=== PATIENT | female | born 1990 ===

== ENCOUNTER 2021-03-22 13:00 | Outpatient (CLI) | payer SELFPAY ==
[2021-03-22 13:18] VITALS: BP 127/84
== END 2021-03-22 13:49 | disposition home or self-care (01) ==
LOC: TRG 13:00 → APU 13:01 → TRG 13:49
PROVIDERS: ATTEND Obstetrics & Gynecology
DX: Z34.93 Encounter for supervision of normal pregnancy, unspecified, third trimester (principal); Z3A.38 38 weeks gestation of pregnancy
CPT/HCPCS: 59025

== ENCOUNTER 2021-03-29 01:48 | Inpatient (IN) | payer OTHER ==
[2021-03-29 03:38] LABS: Basophils # (Auto) 0.1 K/mm3 (0.0-0.1); Basophils % (Auto) 0.5 % (0.0-1.8); Eosinophils % (Auto) 0.2 % (0.0-4.3); Hematocrit 21.7 % (30.3-42.9); Hemoglobin 7.2 gm/dl (10.1-14.3); Lymphocytes # (Auto) 3.4 K/mm3 (1.2-5.4); Lymphocytes % (Auto) 26.4 % (13.4-35.0); Mean Corpuscular HGB Conc 33 % (30-34); Mean Corpuscular Volume 84 fl (79-97); Monocytes % (Auto) 7.6 % (0.0-7.3); Platelet Count 318 K/mm3 (140-440); Red Blood Count 2.58 M/mm3 (3.65-5.03); Red Cell Distribution Width 14.4 % (13.2-15.2)
[2021-03-29] MEDS ORDERED: NalbUPHINE 10 MG/1 ML INJ IV PRN (04:44)
[2021-03-29] MEDS ORDERED: LIDOCAINE (2%) 20 MG/1 ML VIAL 20 ML MDV INFILTRATI ONE (04:44)
[2021-03-29] MEDS ORDERED: METHYLERGONOVINE MALEATE 0.2 MG/ML VIAL IM PRN (04:44)
[2021-03-29] MEDS ORDERED: OXYTOCIN 10 UNIT/1 ML INJ IM PRN (04:44)
[2021-03-29] MEDS ORDERED: MINERAL OIL 30 ML ORAL LIQD PO PRN (04:44)
[2021-03-29] MEDS ORDERED: AMPICILLIN/NS 2 GM/100 ML 2 GM/100 ML BAG IV ONE (04:44)
[2021-03-29] MEDS ORDERED: CARBOPROST TROMETHAMINE 250 MCG/1 ML INJ IM PRN (04:44)
[2021-03-29] MEDS ORDERED: ePHEDrine SULFATE 50 MG/1 ML INJ IV PRN (04:44)
[2021-03-29] MEDS ORDERED: LOPERAMIDE 2 MG CAP PO PRN (04:44)
[2021-03-29] MEDS ORDERED: BUTORPHANOL 2 MG/1 ML INJ IV PRN (04:44)
[2021-03-29] MEDS ORDERED: miSOPROStol 200 MCG TAB PR PRN (04:44)
[2021-03-29] MEDS ORDERED: TERBUTALINE 1 MG/1 ML INJ SUB-Q PRN (04:44)
[2021-03-29] MEDS ORDERED: ACETAMINOPHEN 325 MG TAB PO PRN ×2 (04:44→07:07)
[2021-03-29] MEDS ORDERED: LACTATED RINGERS 1,000 ML IV SCH (04:45)
[2021-03-29] MEDS ORDERED: OXYTOCIN DRIP 30 UNITS/500 ML BAG IV SCH ×2 (05:00)
--- NOTE | 2021-03-29 05:14 | Ultrasound Report ---
ULTRASOUND OBSTETRIC Indication: well-being. Low NIALL. Findings: There is a single intrauterine . BPD = 8.5 cm = 34 weeks, 1 day(s). Head circumference = 33.3 cm = 38 weeks, 0 day(s). Abdominal circumference = 30.1 cm = 34 weeks, 1 day(s). Femur length = 7.22 cm = 36 weeks, 0 day(s). Overall estimated sonographic age = 35 weeks, 4 day(s). heart rate is 156 beats per minute. Estimated weight is 2577 grams position is cephalic. Amniotic fluid volume appears abnormally low. Impression: 1. Single living intrauterine with estimated sonographic age of 35 weeks, 4 day(s). 2. Oligohydramnios with NIALL of 1.4 cm Signer Name: Elvin Alba MD Signed: 03/29/2021 5:10 AM Workstation Name: [id number]
[2021-03-29 05:30] LABS: Alanine Aminotransferase 12 units/L (7-56); Uric Acid 4.2 mg/dL (3.5-7.6)
[2021-03-29] MEDS: BUTORPHANOL 2 MG/1 ML INJ IV PRN ×2 (05:45→07:22)
--- NOTE | 2021-03-29 07:04 | History and Physical Report ---
History of Present Illness Date of examination: 03/29/21 Chief complaint: leakage of fluid History of present illness: 30-year-old G4, P3 at 39 weeks 3 days by stated JAYSON (04/02/2021) with essentially no care presenting with leakage of fluid and contractions, found to be ruptured at 3-4 cm. Patient reports negative care for financial reasons. Past History Past Medical History: no pertinent history Past Surgical History: no surgical history Family/Genetic History: none Social history: no significant social history - Obstetrical History Expected Date of Delivery: 04/02/21 Actual Gestation: 39 Week(s) 3 Day(s) : 4 Para: 3 Hx # Term Pregnancies: 3 Number of Living Children: 3 Medications and Allergies Allergies Allergy/AdvReac Type Severity Reaction Status Date / Time No Known Allergies Allergy Verified 03/22/21 13:02 Active Meds: Active Medications Acetaminophen (Acetaminophen 325 Mg Tab) 650 mg PO Q4H PRN PRN Reason: Pain, Mild (1-3) Butorphanol Tartrate (Butorphanol 2 Mg/1 Ml Inj) 1 mg IV Q2H PRN PRN Reason: Pain, Moderate(4-6) LABOR PAIN Butorphanol Tartrate (Butorphanol 2 Mg/1 Ml Inj) 2 mg IV Q2H PRN PRN Reason: Pain , Severe (7-10) Last Admin: 03/29/21 05:45 Dose: 2 mg Documented by: Carboprost Tromethamine (Carboprost Tromethamine 250 Mcg/1 Ml Inj) 250 mcg IM ONCE PRN PRN Reason: Uterine Bleeding Ephedrine Sulfate (Ephedrine Sulfate 50 Mg/1 Ml Inj) 10 mg IV Q2M PRN PRN Reason: Hypotension Oxytocin/Sodium Chloride (Pitocin/Ns 30 Unit/500ml) 30 units in 500 mls @ 2 mls/hr IV TITR RALPH; Protocol Lactated Ringer's (Lactated Ringers) 1,000 mls @ 125 mls/hr IV DIRECT RALPH Last Admin: 03/29/21 05:34 Dose: 125 mls/hr Documented by: Oxytocin/Sodium Chloride (Pitocin/Ns 30 Unit/500ml) 30 units in 500 mls @ 40 mls/hr IV TITR RALPH; Protocol Loperamide HCl (Loperamide 2 Mg Cap) 2 mg PO ONCE PRN PRN Reason: give with Hemabate Methylergonovine Maleate (Methylergonovine Maleate 0.2 Mg/Ml Vial) 0.2 mg IM ONCE PRN PRN Reason: Uterine Bleeding Mineral Oil (Mineral Oil 30 Ml Oral Liqd) 30 ml PO QHS PRN PRN Reason: Constipation Misoprostol (Misoprostol 200 Mcg Tab) 800 mcg TN ONCE PRN PRN Reason: Uterine Bleeding Nalbuphine HCl (Nalbuphine 10 Mg/1 Ml Inj) 10 mg IV Q2H PRN PRN Reason: Pain, Moderate (4-6) Oxytocin (Oxytocin 10 Unit/1 Ml Inj) 10 unit IM ONCE PRN PRN Reason: Uterine Bleeding Terbutaline Sulfate (Terbutaline 1 Mg/1 Ml Inj) 0.25 mg SUB-Q ONCE PRN PRN Reason: Hyperstimulation/Hypertonicity Review of Systems All systems: negative (expect HPI) - Vital Signs Vital signs: Vital Signs Pulse Pulse Ox 79 100 03/29/21 03:40 03/29/21 03:40 Temp Pulse Resp BP Pulse Ox 97.9 F 99 H 26 H 145/97 100 03/29/21 05:13 03/29/21 06:47 03/29/21 05:45 03/29/21 06:40 03/29/21 06:47 - Physical Exam Abdomen: Positive: normal appearance, normal bowel sounds Uterus: Positive: enlarged - Obstetrical FHR: category 1 Uterine Contraction Monitor Mode: External Cervical Dilatation: 4 Uterine Contraction Pattern: Regular Results Result Diagrams: 03/29/21 03:07 03/29/21 Unknown Abnormal lab results 03/29/21 03/29/21 03/29/21 Range/Units 03:07 03:07 Unknown WBC 12.7 H (4.5-11.0) K/mm3 RBC 2.58 L (3.65-5.03) M/mm3 Hgb 7.2 L (10.1-14.3) gm/dl Hct 21.7 L (30.3-42.9) % Bent % (Auto) 7.6 H (0.0-7.3) % Bent # (Auto) 1.0 H (0.0-0.8) K/mm3 Seg Neutrophils # 8.3 H (1.8-7.7) K/mm3 Lactate Dehydrogenase 284 H (91-180) units/L Membranes Rupture Positive A (Negative) All other labs normal. Assessment and Plan - Patient Problems (1) Active labor Current Visit: Yes Status: Acute Plan to address problem: Patient active labor at full-term per patient report out of her ultrasound today suggestive of a delivery at around 35 weeks with spontaneous rupture membranes. Essentially no care during this . --Labs also revealed significant anemia with a hemoglobin of 7.2 --Ampicillin for GBS unknown --Anticipate
--- NOTE | 2021-03-29 07:12 | Procedure Note ---
OB Delivery Note - Delivery Date of Delivery: 03/29/21 Surgeon: SINGH GARSIA JR Estimated blood loss: 100cc - Vaginal Delivery presentation: vertex Delivery position: OA Intrapartum events: no care, precipitous labor- <3hr Delivery induction: none Delivery augmentation: rupture of membranes Delivery monitor: external FHT, external uterine Route of delivery: Delivery placenta: spontaneous Episiotomy: none Delivery laceration: none Anesthesia: none Delivery comments: Status post spontaneous vaginal delivery of male at 0657 with precipitous delivery. Fundus firm below the umbilicus after spontaneous delivery of placenta. No perineal lacerations identified. 3300 g. 20 inches. Apgars 8/9. EBL 100 cc. - Infant A at 1 minute: 8 at 5 minutes: 9 Gender: Male
[2021-03-29] MEDS ORDERED: diphenhydrAMINE 25 MG CAP PO PRN (07:30)
[2021-03-29] MEDS ORDERED: ONDANSETRON 4 MG/2 ML INJ IV PRN (08:00)
[2021-03-29] MEDS ORDERED: PROMETHAZINE 25 MG RECT SUPP PR PRN (08:00)
[2021-03-29] MEDS ORDERED: PROMETHAZINE 25 MG TAB PO PRN (08:00)
[2021-03-29] MEDS ORDERED: LANOLIN/ZINC/DIMETHICONE (LANSINOH) 7 GM TP PRN (08:00)
[2021-03-29] MEDS ORDERED: oxyCODONE /ACETAMINOPHEN 5-325MG TAB PO PRN (08:00)
[2021-03-29] MEDS ORDERED: WITCH HAZEL/ GLYCERIN PAD TP PRN (08:00)
[2021-03-29 12:50] LABS: Amphetamine Screen,Urine Negative; Benzodiazepines Screen,Urine Negative; Cannabinoid Screen,Urine Negative; Cocaine Screen,Urine Negative; Methadone Screen,Urine Negative; Opiate Screen,Urine Negative
[2021-03-29 13:00] LABS: Bilirubin,Urine NEG (Negative); Blood,Urine MOD (Negative); Color,Urine Amber (Yellow); Urobilinogen,Urine < 2.0 mg/dL (<2.0)
[2021-03-29 13:04] LABS: RBC,Urine > 182.0 /HPF (0.0-6.0); WBC,Urine > 182.0 /HPF (0.0-6.0)
[2021-03-29] MEDS: IBUPROFEN 600 MG TAB PO SCH ×2 (17:25→23:17)
[2021-03-29] MEDS: DOCUSATE SODIUM 100 MG CAP PO SCH ×2 (17:29→23:19)
[2021-03-29] MEDS: FERROUS SULFATE 325 MG TAB PO SCH ×2 (17:30→23:18)
[2021-03-29 18:08] LABS: Hematocrit 31.8 % (30.3-42.9); Hemoglobin 10.7 gm/dl (10.1-14.3)
[2021-03-29] MEDS ORDERED: MAGNESIUM HYDROXIDE (MOM) ORAL LIQD UDC PO PRN (22:00)
[2021-03-30] MEDS: IBUPROFEN 600 MG TAB PO SCH ×3 (05:37→15:56)
[2021-03-30] MEDS: FERROUS SULFATE 325 MG TAB PO SCH ×2 (15:56→21:40)
--- NOTE | 2021-03-30 17:51 | Progress Note ---
Assessment and Plan A: S/P P: Continue routine pp care D/C home tomm if stable Subjective - Subjective Date of service: 03/30/21 Principal diagnosis: s/p Patient reports: appetite normal, voiding normally, pain well controlled, ambulating normally [place]: doing well, bottle feeding Objective - Vital Signs Latest vital signs: Vital Signs Temp Pulse Resp BP Pulse Ox Pulse Ox 03/30/21 16:04 98.5 F 91 H 18 135/73 97 03/30/21 08:51 98 03/30/21 08:04 98.0 F 73 16 110/81 99 03/30/21 05:37 18 03/30/21 00:05 98.2 F 91 H 20 124/87 100 03/29/21 23:17 20 03/29/21 20:30 98 03/29/21 20:01 98.8 F 79 20 118/78 99 Intake and Output 03/30/21 03/30/21 03/30/21 06:59 14:59 22:59 Intake Total 240 Balance 240 Intake: Oral 240 Other: Total, Intake Amount 240 # Voids Void 1 - Exam Breasts: Present: normal Abdomen: Present: normal appearance, soft, normal bowel sounds Vulva: both: normal Uterus: Present: normal, firm, fundal height below umbilicus Extremities: Present: normal
--- NOTE | 2021-03-30 17:58 | Discharge Summary ---
Providers - Providers Date of Admission: 03/29/21 04:44 Date of discharge: 03/30/21 Attending physician: SINGH GARSIA JR, MD Primary care physician: SINGH GARSIA JR, MD Hospitalization Reason for admission: active labor, IUP at term Delivery: Episiotomy: none Laceration: none Other procedures: none complications: none Discharge diagnosis: IUP at term delivered [place] baby: male Hospital course: Pt presents to [facility] in active labor. She had a and was d/c'd home in stable condition. See H&P, delivery summary, and d/c plan. Condition at discharge: Stable Disposition: 01 HOME / SELF CARE / HOMELESS Plan - Discharge Medications Prescriptions: Ibuprofen 600 mg PO Q6HR PRN #30 capsule PRN Reason: Menstrual Cramps - Provider Discharge Summary Activity: routine, no sex for 6 weeks, no heavy lifting 4 weeks, no strenuous exercise Diet: routine Instructions: routine Additional instructions: [] Smoking cessation referral if applicable(refer to patient education folder for contact #) [] Refer to [facility]'s [facility] Booklet Call your doctor immediately for: * Fever > 100.5 * Heavy vaginal bleeding ( >1 pad per hour) * Severe persistent headache * Shortness of breath * Reddened, hot, painful area to leg or breast * Drainage or odor from incision. * Keep incision clean and dry at all times and follow doctor's instructions regarding bathing/showering - Follow up plan Follow up: SINGH GARSIA JR, MD [Primary Care Provider] - 6 Weeks
[2021-03-30] MEDS: DOCUSATE SODIUM 100 MG CAP PO SCH (21:40)
[2021-03-31] MEDS: IBUPROFEN 600 MG TAB PO SCH ×3 (00:17→09:37)
[2021-03-31] MEDS: FERROUS SULFATE 325 MG TAB PO SCH (09:35)
[2021-03-31] MEDS: DOCUSATE SODIUM 100 MG CAP PO SCH (09:35)
[2021-03-31 14:01] VITALS: BP 119/75
== END 2021-03-31 14:10 | disposition home or self-care (01) | DRG 807 ==
LOC: TRG 01:48 → APU 01:51 → TRG 02:34 → APU 02:34 → TRG 04:44 → LD 04:44 → OB 09:00
PROVIDERS: ADMIT Obstetrics & Gynecology; ATTEND Obstetrics & Gynecology
PROC: 10E0XZZ Delivery of Products of Conception, External Approach (ICD-10-PCS; principal; 2021-03-29)
DX: O62.3 Precipitate labor (principal); Z37.0 Single live birth; Z3A.39 39 weeks gestation of pregnancy
CPT/HCPCS: 36415; 76816; 80307; 81001; 82565; 83615; 84112; 84450; 84460; 84550; 85014; 85018; 85025; 86592; 86706; 86762; 86850; 86900; 86901; 87806; 99211; G0378; G0463; J0290; J0595; J2405; J7120; U0003